=== PATIENT | female | born 1995 | race African-American/Black ===

== ENCOUNTER 2016-12-23 13:13 | Emergency (ER) | payer SELFPAY ==
[~2016-12-23] VITALS: Ht 167.6 cm; Wt 46.0 kg
[2016-12-23 13:22] VITALS: BP 148/86
== END 2016-12-23 18:11 | disposition left against medical advice (07) ==
LOC: ER 18:08
DX: R07.9 Chest pain, unspecified (principal); Z53.21 Procedure and treatment not carried out due to patient leaving prior to being seen by health care provider
CPT/HCPCS: 93005